=== PATIENT | male | born 1990 | race Caucasian/White ===

== ENCOUNTER 2021-01-21 11:11 | Emergency (ER) | payer OTHER ==
[~2021-01-21] VITALS: Ht 172.7 cm; Wt 83.9 kg
[~2021-01-21 11:11] MED LIST: CLARITIN10 MG PO; PEPCID AC20 MG PO; PREDNISONE 20MG20 MG PO
[2021-01-21 11:49] LABS: BASOPHIL 0.1 % (0-2); EOSINOPHIL 0.1 % (0-5); HGB 14.9 g/dl (13.2-18.0); LYMPHOCYTE 7.4 % (15-48); MCH 31.8 pg (25.0-31.0); MCHC 34.7 g/dL (32.0-36.0); MCV 91.9 fL (78.0-100.0); MONOCYTE 7.6 % (0-12); MPV 10.7 fL (6.0-9.5); NEUTROPHIL 84.2 % (41-80); NRBC 0; PLT 178 K/uL (150-400); RBC 4.68 M/uL (4.70-6.00); WBC 16.1 K/uL (4.0-10.5)
[2021-01-21 12:11] LABS: ALBUMIN 4.2 g/dL (3.4-5.0); BILIRUBIN - TOTAL 1.1 mg/dL (0.2-1.0); BUN/CREAT RATIO (CALC) 16.3 RATIO; CREATININE 0.92 mg/dL (0.67-1.17); GLOBULIN (CALCULATION) 3.1 g/dL; TOTAL PROTEIN 7.3 g/dL (6.4-8.2)
[2021-01-21 12:13] LABS: POTASSIUM 4.1 mmol/L (3.5-5.1)
[2021-01-21 12:26] LABS: CORONAVIRUS 2019 SARS-COV-2 NEGATIVE (NEGATIVE); INFLUENZA A NAA NEGATIVE (NEGATIVE)
== END 2021-01-21 15:00 | disposition other institution (70) ==
LOC: FER 11:11
PROVIDERS: Internal Medicine
DX: J39.1 Other abscess of pharynx (principal); J36 Peritonsillar abscess; Z88.0 Allergy status to penicillin; Z88.5 Allergy status to narcotic agent; Z20.822 Contact with and (suspected) exposure to COVID-19
CPT/HCPCS: 36415; 70491; 80053; 84145; 85025; 87880; J1100; J1170; J2185; J2270; J2405; J7030; Q9967; U0002